=== PATIENT | female | born 1985 | race Two or more races ===

== ENCOUNTER 2020-09-20 23:21 | Emergency (ER) | payer SELFPAY ==
[~2020-09-20] VITALS: Ht 157.5 cm; Wt 48.1 kg
[2020-09-20 23:25] VITALS: BP 116/79
== END 2020-09-21 02:21 | disposition home or self-care (01) ==
LOC: ER 23:27
DX: S80.12XA Contusion of left lower leg, initial encounter (principal); W01.0XXA Fall on same level from slipping, tripping and stumbling without subsequent striking against object, initial encounter; Y93.89 Activity, other specified; Y92.89 Other specified places as the place of occurrence of the external cause; Y99.8 Other external cause status
CPT/HCPCS: 73502